=== PATIENT | female | born 1950 ===

== ENCOUNTER 2019-10-23 04:23 | Outpatient (CLI) | payer MEDICARE | END 2019-10-23 23:59 | disposition home or self-care (01) | LOC: DIABETIC 04:23 | PROVIDERS: ATTEND Nurse Practitioner Family | DX: E11.9 Type 2 diabetes mellitus without complications (principal) | CPT/HCPCS: G0108 ==

== ENCOUNTER 2019-11-20 03:15 | Outpatient (CLI) | payer MEDICARE | END 2019-11-20 23:59 | disposition home or self-care (01) | LOC: DIABETIC 03:15 | PROVIDERS: ATTEND Nurse Practitioner Family | DX: E11.9 Type 2 diabetes mellitus without complications (principal) | CPT/HCPCS: G0108 ==